=== PATIENT | male | born 1975 | race Caucasian/White ===

== ENCOUNTER → 2017-01-20 | Outpatient (CLI) | payer OTHER ==
[~2017-01-20] MED LIST: ALPRAZOLAM PO; CORGARD PO; KEPPRA500 M2 PO; KEPPRA750 MG PO; MACROBID100 M1 PO; NADOLOL20 MG PO; NO MEDICATIONS; OXYCONTIN PO; PERCOCET5/325 PO; PROPECIA1 MG PO; TAMBOCAR PO; XARELTO10 MG PO
--- NOTE | ~2017-01-20 | US77 ---
[facility] A Service of [facility] RADIOLOGY TEXT RESULTS PATIENT: DIAN EARL LOCATION: [facility] : 73 UNIT #: [id number] AGE: [address]: Jose Hart MD SEX: M ORDER DR: [id number] [facility] [address] [place], [place] [address] [id number] O MR#: [id number] Acc #: [id number] NAME: DIAN EARL : 1975 SEX: M STUDY DATE/TIME: 01/20/2017 14:16 UNIT: [facility] ROOM: STUDY DESCRIPTION: US Kidney Bilateral Complete Attending Physician: Jose Hart M.D. Referring Physician: Jose Hart M.D. Ordering Physician: Jose Hart M.D. Primary Care Physician: Jenna Kamara M.D. MEDICAL IMAGING REPORT This report is preliminary unless electronic signature is present EXAM Renal ultrasound, 01/20/2017. HISTORY Neurogenic bladder due to cauda equina syndrome. Evaluate for hydronephrosis. FINDINGS The right kidney measured 9.9 cm, while the left kidney measured 8.8 cm in longitudinal dimensions. There is no evidence of hydronephrosis or nephrolithiasis. No cystic or solid mass lesions were seen on either kidney and there is normal renal cortical echogenicity. Images of the bladder are normal. IMPRESSION 1. Negative renal ultrasound. 2. Images of the bladder are normal. Dictated by... Jorge Barahona M.D. THIS IS AN ELECTRONICALLY VERIFIED REPORT Jorge Barahona M.D. at 01/21/2017 2:11 PM PIA/mandie TD: 01/21/2017 09:29 JOB #: [id number] MEDICAL IMAGING REPORT Page 1 of 1 COPY
== END | disposition home or self-care (01) ==
LOC: CGUS 13:58
DX: G83.4 Cauda equina syndrome (principal)
CPT/HCPCS: 76770